=== PATIENT | male | born 1950 | race Caucasian/White ===

== ENCOUNTER 2019-07-25 11:58 | Emergency (ER) | payer OTHER, BC ==
[2019-07-25 12:03] VITALS: BP 107/78; PULSE 92; TEMP 98.1
[2019-07-25] MEDS ORDERED: DEXAMETHASONE LIQUID 0.5 MG/5 ML PO ONE (12:47)
[2019-07-25] MEDS ORDERED: ALBUTEROL SO4 2.5/IPRATROPIUM 0.5 INH SOL 3 ML VIAL.NEB. NEB ONE (12:58)
[2019-07-25] MEDS ORDERED: DEXAMETHASONE SOD PHOSPHATE 10 MG/1 ML VIAL ONE (12:58)
[2019-07-25] MEDS ORDERED: ALBUTEROL SO4 2.5/IPRATROPIUM 0.5 INH SOL 3 ML VIAL.NEB. NEB SCH (13:00)
--- NOTE | 2019-07-25 13:17 | PDOC ---
History of Present Illness - General Chief Complaint: Cold Symptoms Stated Complaint: R/O PNEUMONIA Time Seen by Provider: 07/25/19 12:19 - History of Present Illness Initial Comments: 07/25/19 13:14 69-year-old male with a past medical history of hypertension presents for evaluation of cough with systemic symptoms of chills and night sweats fever at the first part of the illness about 1 month ago. Since that time he had a productive cough with a headache intermittent chills and night sweats no fevers Past History - Past Medical History Allergies/Adverse Reactions: Allergies Allergy/AdvReac Type Severity Reaction Status Date / Time No Known Allergies Allergy Verified 07/25/19 12:03 Home Medications: Ambulatory Orders Diazepam [Valium] 5 mg PO ONCE 03/09/16 Ibuprofen 600 mg PO QID #20 tablet 03/09/16 Oxycodone HCl/Acetaminophen [Percocet 5-325 mg Tablet] 1 tab PO Q6H PRN #10 tablet MDD 4 03/09/16 Albuterol Sulfate Inhaler - [Ventolin HFA Inhaler -] 1 - 2 inh PO Q4H #1 inhaler 07/25/19 Azithromycin [Zithromax -] 250 mg PO UTDICT #6 tab 07/25/19 Guaifenesin Dm [Mucinex Dm -] 1 tab PO BID #60 tab.er.12h 07/25/19 COPD: No HTN: Yes - Surgical History Orthopedic Surgery: Yes (back surgery) - Psycho Social/Smoking Cessation Hx Smoking History: Current every day smoker Have you smoked in the past 12 months: Yes Number of Cigarettes Smoked Daily: 20 Information on smoking cessation initiated: No Hx Alcohol Use: No Drug/Substance Use Hx: No Substance Use Type: None Review of Systems - Review of Systems Constitutional: Yes: Chills, Fever, Malaise, Night Sweats Respiratory: Yes: Cough *Physical Exam - Vital Signs Last Vital Signs Temp Pulse Resp BP Pulse Ox 98.1 F 92 H 18 107/78 98 07/25/19 12:00 07/25/19 12:00 07/25/19 12:00 07/25/19 12:00 07/25/19 12:00 - Physical Exam Comments: 07/25/19 13:14 GENERAL: The patient is awake, alert, and fully oriented, in no acute distress. HEAD: Normal with no signs of trauma. EYES: sclera anicteric, conjunctiva clear. ENT: Ears normal NECK: Normal range of motion LUNGS: Right-sided rhonchi and wheezing otherwise clear HEART: S1 and S2 without murmur, rub or gallop. ABDOMEN: Soft, nontender, normoactive bowel sounds. No guarding, no rebound. No masses. EXTREMITIES: Normal range of motion, no edema. No clubbing or cyanosis. No cords, erythema, or tenderness. NEUROLOGICAL: Cranial nerves II through XII grossly intact. Normal speech, normal gait. PSYCH: Normal mood, normal affect. SKIN: Warm, Dry, normal turgor, no rashes or lesions noted. ED Treatment Course - RADIOLOGY Radiology Studies Ordered: Category Date Time Status CHEST PA & LAT [RAD] Stat Radiology 07/25/19 12:47 Completed - Medications Given in the ED: ED Medications Discontinued Medications Generic Name Dose Route Start Last Admin Trade Name Freq PRN Reason Stop Dose Admin Dexamethasone 10 mg 07/25/19 12:47 07/25/19 13:01 Decadron Liquid - PO 07/25/19 12:48 10 mg ONCE ONE Administration Medical Decision Making - Medical Decision Making 07/25/19 13:15 No discrete infiltrate on chest x-ray patient cleared up after 2 DuoNeb's will treat for bronchitis follow-up with primary care physician Discharge - Discharge Information Problems reviewed: Yes Clinical Impression/Diagnosis: Bronchitis Condition: Stable Disposition: HOME - Admission Yes - Additional Discharge Information Prescriptions: Albuterol Sulfate Inhaler - [Ventolin HFA Inhaler -] 1 - 2 inh PO Q4H #1 inhaler Azithromycin [Zithromax -] 250 mg PO UTDICT #6 tab Guaifenesin Dm [Mucinex Dm -] 1 tab PO BID #60 tab.er.12h - Follow up/Referral Referrals: Behzad Hays [Primary Care Provider] - - Patient Discharge Instructions Patient Printed Discharge Instructions: DI for Acute Bronchitis Additional Instructions: Please take the antibiotics as directed the Mucinex will help with your cough and the inhaler will help with your wheezing and shortness of breath. Return to the emergency room for worsening symptoms. Without fail please follow-up with your primary care physician in 1 to 2 days for further evaluation and treatment options. - Post Discharge Activity
== END 2019-07-25 13:20 | disposition home or self-care (01) ==
LOC: JERFT 11:58
PROC: 3E0F7GC Introduction of Other Therapeutic Substance into Respiratory Tract, Via Natural or Artificial Opening (ICD-10-PCS; principal; 2019-07-25)
DX: J40 Bronchitis, not specified as acute or chronic (principal); I10 Essential (primary) hypertension; F17.210 Nicotine dependence, cigarettes, uncomplicated
CPT/HCPCS: 71046-TC-FY; 94640; 99281-25

== ENCOUNTER 2021-01-27 10:12 | Emergency (ER) | payer OTHER, BC ==
[2021-01-27 10:30] VITALS: BP 135/73; PULSE 79; TEMP 97.9; BMI 29.7
[2021-01-27 11:26] LABS: BASO % 1.8 % (0-2.0); EOS % 7.6 % (0-4.5); HEMOGLOBIN 14.4 GM/dL (11.7-16.9); LYMPH % 26.8 % (8-40); MCH 29.7 pg (25.7-33.7); MCHC 34.3 g/dl (32.0-35.9); MEAN CELL VOLUME 86.7 fl (80-96); MEAN PLT VOLUME 6.7 fl (7.5-11.1); MONO % 12.6 % (3.8-10.2); NEUT % 51.2 % (42.8-82.8); PLATELET COUNT 246 K/MM3 (134-434); RBC 4.85 M/mm3 (4.00-5.60); RDW 13.9 % (11.9-15.9); WHITE BLOOD COUNT 7.2 K/mm3 (4.0-10.0)
[2021-01-27 11:47] LABS: CHLORIDE 104 mmol/L (98-107); SODIUM 141 mmol/L (136-145)
[2021-01-27 11:49] LABS: ALBUMIN 3.8 g/dl (3.4-5.0); CALCIUM 8.8 mg/dL (8.5-10.1)
[2021-01-27 11:50] LABS: ANION GAP 3 MMOL/L (8-16); BLOOD UREA NITROGEN 12.9 mg/dL (7-18); CO2 34 mmol/L (21-32); GLUCOSE,RANDOM 136 mg/dL (74-106)
[2021-01-27 11:53] LABS: CREATININE 0.7 mg/dL (0.55-1.3); SGOT/AST 23 U/L (15-37); SGPT/ALT 33 U/L (13-61)
[2021-01-27 11:54] LABS: BILIRUBIN,TOTAL 0.6 mg/dL (0.2-1); TOT PROT 6.8 g/dl (6.4-8.2)
[2021-01-27 11:55] LABS: ALK PHOS 108 U/L (45-117)
[2021-01-27 11:58] LABS: N-TERMINAL BNP 29.1 pg/ml (5-125)
== END 2021-01-27 12:50 | disposition home or self-care (01) ==
LOC: JER 10:12
DX: L03.116 Cellulitis of left lower limb (principal)
CPT/HCPCS: 36415; 71046-TC-FY; 80053; 82550; 82553; 83880; 84484; 85025; 93005; 93010; 93970; 99285-25

== ENCOUNTER 2021-03-26 09:55 | Emergency (ER) | payer OTHER, BC ==
[2021-03-26 10:08] VITALS: BP 133/88; PULSE 85; TEMP 97.9; BMI 29.7
[2021-03-26] MEDS ORDERED: KETOROLAC TROMETHAMINE 30 MG/1 ML VIAL IM ONE (10:13)
== END 2021-03-26 10:59 | disposition home or self-care (01) ==
LOC: JERFT 09:55 → JER 09:55 → JERFT 10:59
PROC: 3E0233Z Introduction of Anti-inflammatory into Muscle, Percutaneous Approach (ICD-10-PCS; principal; 2021-03-26)
DX: M25.562 Pain in left knee (principal)
CPT/HCPCS: 73562-TC-LT-FY; 99284-25

== ENCOUNTER 2021-04-02 00:45 | Emergency (ER) | payer OTHER, BC ==
[2021-04-02 01:23] VITALS: BP 144/89; PULSE 86; TEMP 98.7; BMI 29.4
[2021-04-02] MEDS ORDERED: ALBUTEROL SO4 2.5/IPRATROPIUM 0.5 INH SOL 3 ML VIAL.NEB. NEB ONE ×2 (02:23→02:37)
[2021-04-02] MEDS ORDERED: ACETAMINOPHEN 1000 MG/100 ML VIAL (NON FORMULARY) IVPB ONE (02:24)
[2021-04-02] MEDS ORDERED: ACETAMINOPHEN INJECTION 100 ML IVPB ONE (02:37)
[2021-04-02 03:17] LABS: BASO % 1.1 % (0-2.0); EOS % 3.9 % (0-4.5); HEMATOCRIT 42.1 % (35.4-49); HEMOGLOBIN 14.2 GM/dL (11.7-16.9); LYMPH % 15.9 % (8-40); MCH 29.1 pg (25.7-33.7); MCHC 33.8 g/dl (32.0-35.9); MEAN CELL VOLUME 86.1 fl (80-96); MEAN PLT VOLUME 7.4 fl (7.5-11.1); MONO % 11.6 % (3.8-10.2); NEUT % 67.5 % (42.8-82.8); PLATELET COUNT 203 10^3/uL (134-434); RBC 4.89 M/mm3 (4.00-5.60); RDW 13.8 % (11.9-15.9); WHITE BLOOD COUNT 11.7 K/mm3 (4.0-10.0)
[2021-04-02 03:28] LABS: INR 1.03 (0.83-1.09); PROTHROMBIN TIME (PATIENT) 12.6 SEC (9.7-13.0)
[2021-04-02 03:31] LABS: ACTIVATED PTT 33.2 SECONDS (25.2-36.5)
[2021-04-02 03:35] LABS: CHLORIDE 96 mmol/L (98-107)
[2021-04-02] MEDS ORDERED: methylPREDNISolone NA SUCC 125 MG/2 ML VIAL IVPUSH ONE (04:35)
[2021-04-02] MEDS ORDERED: methylPREDNISolone NA SUCC 125 MG/2 ML VIAL ONE (04:52)
[2021-04-02 05:15] LABS: ALBUMIN 2.9 g/dl (3.4-5.0); BLOOD UREA NITROGEN 15.8 mg/dL (7-18); CALCIUM 7.9 mg/dL (8.5-10.1); CREATININE 0.9 mg/dL (0.55-1.3); GLUCOSE,RANDOM 131 mg/dL (74-106); SODIUM 110 mmol/L (136-145); TOT PROT 10.2 g/dl (6.4-8.2)
[2021-04-02 05:59] LABS: CHLORIDE 102 mmol/L (98-107); SODIUM 138 mmol/L (136-145)
[2021-04-02 06:01] LABS: ANION GAP 7 MMOL/L (8-16); BLOOD UREA NITROGEN 14.5 mg/dL (7-18); CALCIUM 8.6 mg/dL (8.5-10.1); CO2 29 mmol/L (21-32); GLUCOSE,RANDOM 157 mg/dL (74-106)
[2021-04-02 06:04] LABS: SGPT/ALT 27 U/L (13-61)
[2021-04-02 06:05] LABS: CREATININE 0.8 mg/dL (0.55-1.3); SGOT/AST 18 U/L (15-37)
[2021-04-02] MEDS ORDERED: AZITHROMYCIN 250 MG TABLET PO ONE (06:05)
[2021-04-02 06:06] LABS: BILIRUBIN,TOTAL 0.5 mg/dL (0.2-1)
[2021-04-02 06:07] LABS: ALK PHOS 82 U/L (45-117)
[2021-04-02 06:09] LABS: ALBUMIN 3.7 g/dl (3.4-5.0); TOT PROT 6.6 g/dl (6.4-8.2)
[2021-04-02] MEDS ORDERED: AZITHROMYCIN 250 MG TABLET ONE (06:11)
[2021-04-02] MEDS ORDERED: AZITHROMYCIN 500 MG TABLET ONE (06:40)
== END 2021-04-02 06:50 | disposition home or self-care (01) ==
LOC: JER 00:45
PROC: 3E033NZ Introduction of Analgesics, Hypnotics, Sedatives into Peripheral Vein, Percutaneous Approach (ICD-10-PCS; principal; 2021-04-02)
PROC: 3E033GC Introduction of Other Therapeutic Substance into Peripheral Vein, Percutaneous Approach (ICD-10-PCS; 2021-04-02)
PROC: 3E0F7GC Introduction of Other Therapeutic Substance into Respiratory Tract, Via Natural or Artificial Opening (ICD-10-PCS; 2021-04-02)
DX: J44.1 Chronic obstructive pulmonary disease with (acute) exacerbation (principal)
CPT/HCPCS: 36415; 71045-TC-FY; 80053; 83880; 84484; 85025; 85610; 85730; 87804; 93005; 93010; 99284-25; C9803; J0131; U0003; U0005

== ENCOUNTER 2021-07-21 13:18 | Emergency (ER) | payer OTHER, BC ==
[2021-07-21 13:41] VITALS: BP 131/75; PULSE 68; TEMP 98.9; BMI 30.2
== END 2021-07-21 15:03 | disposition home or self-care (01) ==
LOC: JER 13:18
DX: J06.9 Acute upper respiratory infection, unspecified (principal); R05.9 Cough, unspecified; R09.81 Nasal congestion
CPT/HCPCS: 71046-TC-FY; 99284-25

== ENCOUNTER 2021-09-04 11:28 | Emergency (ER) | payer OTHER, BC ==
[2021-09-04 11:50] VITALS: BP 120/78; PULSE 77; TEMP 97.5; BMI 29.4
[2021-09-07 05:09] LABS: SARS-CoV-2 NAA Not Detected (Not Detected)
== END 2021-09-04 13:54 | disposition home or self-care (01) ==
LOC: JER 11:28
DX: Z20.822 Contact with and (suspected) exposure to COVID-19 (principal)
CPT/HCPCS: 99283-25; C9803; U0003; U0005

== ENCOUNTER 2022-05-28 19:46 | Emergency (ER) | payer OTHER, BC ==
[2022-05-28 19:58] VITALS: BP 117/72; PULSE 79; RESP 19; BMI 29.7
[2022-05-28 20:19] VITALS: TEMP 97.9
== END 2022-05-28 20:41 | disposition left against medical advice (07) ==
LOC: JER 19:46
DX: R07.9 Chest pain, unspecified (principal)
CPT/HCPCS: 93005; 93010; 99281-25

== ENCOUNTER 2022-08-30 14:31 | Emergency (ER) | payer OTHER, BC ==
[2022-08-30 14:38] VITALS: BP 124/78; PULSE 83; RESP 16; TEMP 97.6; BMI 29.2
== END 2022-08-30 15:05 | disposition left against medical advice (07) ==
LOC: JER 14:31
DX: R07.9 Chest pain, unspecified (principal)
CPT/HCPCS: 93005; 93010; 99283-25